=== PATIENT | male | born 1950 | race Caucasian/White ===

== ENCOUNTER 2023-01-09 01:20 | Outpatient (CLI) | payer MEDICARE, BC, SELFPAY ==
--- NOTE | 2023-01-09 09:00 | ETT_ITS ---
APPROVED REPORT Exam: Exercise Treadmill Patient Location: Out-Patient Room/Bed: Stress Nurse: Gina Richardson RN Ordering Provider:MIGUEL ANGEL GUERRERO, Contact Number: [phone] BMI: 35.25 Baseline Rhythm: Atrial Fibrillation Comment: Patient noted to be in afib. Limited hx provided from referring PCP. ? new afib. Will f/u [facility] Dr. Cantu. Indications: SOB Medical History Medical History: HTN, HLD, Gout Cardiac Medications: Losartan, atenolol, hydrochlorathiazide, amlodipine Allergies: NKA Cardiac Risk Factors: HTN, HLD Previous Cardiac Procedures: None Pretest Chest Pain Characteristics: None Exercise History: Physically active Physical Disabilities: Left knee Lung Sounds: Clear to auscultation Heart Sounds: Irregular Stress Test Details Test: Exercise stress testing was performed using a Goran protocol. Rest Stress HR Resting HR Supine: 58 bpm Max Heart Rate (APMHR): 150 bpm Resting HR Standin bpm Target HR (85% APMHR): 128 bpm Max HR Achieved: 140 bpm % of APMHR: 93 Recovery HR: 73 bpm HR response to stress: Normal HR response to stress BP Resting BP Supine: 148/90 mmHg Resting BP Standin/90 mmHg Max BP: 200/88 mmHg Recovery BP: 148/90 mmHg BP response to stress: Normal blood pressure response to stress. ECG Resting ECG: Atrial Fibrillation Ectopy: Multifocal PVC's Stress ECG: Atrial Fibrillation ST Change: No significant ST segment changes noted Arrhythmia: Multifocal PVC's, Couplets, triplet Recovery ECG: Atrial Fibrillation Recovery ST Change: No significant ST segment changes noted Recovery Arrhythmia: Multifocal PVC's, Couplets, triplet Clinical Reason for Termination: Target HR Achieved, Fatigue, SOB Stress Symptoms: General Fatigue, Mild SOB Exercise duration: 06 min35 sec Highest Stage Reached: Stage 3: 3.4 mph at 14% grade. Exercise capacity: 7.95 METs Angina Score: None Cleary Treadmill Score: 5.0 Rate Pressure Product: [id number] Stress ECG Conclusion 1. The resting electrocardiogram showed atrial fibrillation, poor R wave progression 2. Patient exercised on the Goran protocol and completed a workload of 7.95 METS 3. Normal heart rate and blood pressure response to exercise. Patient achieved 93% of predicted hear t rate for age 4. There was no electrocardiographic evidence of myocardial ischemia 5. Atrial fibrillation was present throughout with occasional PVCs Cleary Treadmill Score is 5.0 which is Low risk. Stress Test Summary STAGE Time (mins) Speed (mph) Grade (%) HR BP SpO2 SYMPTOMS METS Supine 58 148/90 96 Standing 62 132/90 1 3 1.7 10 92 132/80 4.5 2 6 2.5 12 100 132/80 7 3 9 3.4 14 135 Mild SOB, generalized fatigue 10 1 min recovery 87 200/88 97 3 min recovery 75 160/80 6 min recovery 71 148/90 98 Patient noted to be in afib. Limited hx provided from referring PCP. ? new afib. Will f/u with Dr. Cantu wd.
== END 2023-01-09 01:40 ==
PROVIDERS: PCP Internal Medicine; Visit Provider Internal Medicine
DX: R06.02 Shortness of breath (principal)
CPT/HCPCS: 93016; 93018; 93017